=== PATIENT | female | born 1985 | race Hispanic/Latino ===

== ENCOUNTER 2020-09-24 06:44 | Emergency (ER) | payer BC, SELFPAY ==
--- OUTSIDE RECORDS SUMMARY | 2020-09-24 06:46 | XMS REPORT | Continuity of Care Document ---
:1985 Author Organization [facility] t Address [address] [place] [address] Care Team Providers Name Role Phone Alexandro TORRES Attending Clinician Problems This patient has no known problems. Allergies, Adverse Reactions, Alerts This patient has no known allergies or adverse reactions. Medications This patient has no known medications. Procedures This patient has no known procedures. Encounters Start End Encounter Admission Attending Care Care Encounter Source Date/Time Date/Time Type Type Clinicians Facility Department ID 2018-10-01 2018-10-01 Emergency Alexandro [facility] [id number] 05:30:56 06:20:00 Navarro Kwok [id number] [place] [id number] [place] [id number] Results This patient has no known results.
[2020-09-24 07:23] LABS: Urine Blood Negative (Negative); Urine Glucose Negative (Negative); Urine Protein Negative (Negative); Urine Specific Gravity 1.015 (1.005-1.030); Urine pH 8.5 (5.0-7.0)
[2020-09-24] MEDS ORDERED: ONDANSETRON 4 MG/2 ML VIAL ONE (07:36)
[2020-09-24] MEDS ORDERED: MORPHINE 4 MG/ML SYR ONE (07:36)
[2020-09-24] MEDS ORDERED: NA CHLORIDE 0.9% 1,000 ML ONE (07:37)
[2020-09-24 07:43] LABS: Absolute Lymphocytes (CBC) 0.5 K/uL (0.7-4.9); Basophils % 0.3 % (0-1.3); Hematocrit 34.6 % (36.0-45.0); Lymphocytes % 4.1 % (15.3-44.8); MPV 7.2 fL (7.6-11.3); RBC Red Blood Cell Count 3.86 M/uL (3.86-4.86)
[2020-09-24 07:56] LABS: ALT/SGPT 33 U/L (12-78); AST/SGOT 24 U/L (15-37); Alkaline Phosphatase 89 U/L (45-117); BUN Blood Urea Nitrogen 10 mg/dL (7-18); Bicarbonate 28 mmol/L (21-32); Bilirubin Direct 0.1 mg/dL (0-0.2); Bilirubin Total 0.4 mg/dL (0.2-1.0); Glucose Level 126 mg/dL (74-106); Lipase 85 U/L (73-393); Potassium 3.7 mmol/L (3.5-5.1); Protein, Total 7.8 g/dL (6.4-8.2); Sodium Level 138 mmol/L (136-145)
[2020-09-24 07:57] LABS: Urine Amorphous Sediment 3+ /HPF (NONE SEEN); Urine Bacteria <20 /HPF (<20); Urine RBC <5 /HPF (NONE SEEN)
[2020-09-24 08:27] LABS: Urine Specific Gravity/Preg 1.015 (1.005-1.030)
--- NOTE | 2020-09-24 08:43 | RAD REPORT ---
EXAM DESCRIPTION: CTAbdomen Pelvis W Contrast - 09/24/2020 8:16 am CLINICAL HISTORY: Abdominal pain. ABD PAIN COMPARISON: No comparisons TECHNIQUE: Biphasic CT imaging of the abdomen and pelvis was performed with 100 ml non-ionic IV cont rast. All CT scans are performed using dose optimization technique as appropriate and may include automated exposure control or mA/KV adjustment according to patient size. FINDINGS: The lung bases are clear. The liver, spleen, pancreas, adrenal glands and kidneys are within normal limits. No bowel obstruction, free air, free fluid or abscess. The appendix is normal. No evidence of signi ficant lymphadenopathy. No suspicious bony findings. IMPRESSION: No acute intra-abdominal or pelvic finding.
[2020-09-24 08:56] LABS: Blood Morphology Comment NOT SEEN (NOT SEEN); Platelet Estimate ADEQ; White Blood Cell Scan OK (OK)
--- NOTE | 2020-09-24 09:02 | EDPHYS ---
Physician Documentation [facility] Name: Coby Wyatt Age: 34 yrs Sex: Female : 1985 Arrival Date: 09/24/2020 Time: 06:46 Bed 7 Private MD: ED Physician Saw Owen HPI: 09/24 07:12 This 34 yrs old Female presents to ER via Wheelchair with complaints of Chest pm1 Pain, Abdominal Pain. 07:12 The patient presents with abdominal pain suprapubic area and epigastric area. pm1 07:12 Onset: The symptoms/episode began/occurred 2 day(s) ago. Associated signs and symptoms: pm1 Pertinent positives: chest pain, Pertinent negatives: nausea, vomiting, and diarrhea, constipation, dysuria, fever, shortness of breath. The symptoms are described as crampy. Modifying factors: The symptoms are alleviated by nothing, the symptoms are aggravated by nothing. Severity of pain: in the emergency department the pain is actually worse. The patient has experienced similar episodes in the past, multiple times, today's symptoms are similar, to previous ovarian cysts. Patient reports feeling this pain every 3 months but now it is occurring monthly. The patient has not recently seen a physician. Historical: - Allergies: 07:01 No Known Allergies; jb4 - Home Meds: 07:01 None [Active]; jb4 - PMHx: 07:01 None; jb4 - PSHx: 07:01 None; jb4 - Immunization history:: Adult Immunizations up to date. - Social history:: Smoking status: Patient denies any tobacco usage or history of. Patient/guardian denies using alcohol, street drugs. ROS: 07:12 Constitutional: Negative for fever, chills, and weight loss. pm1 07:12 Respiratory: Negative for shortness of breath, cough, wheezing, and pleuritic chest pain. 07:12 Back: Negative for injury and pain, : Negative for injury, bleeding, discharge, and swelling, MS/Extremity: Negative for injury and deformity, Skin: Negative for injury, rash, and discoloration, Neuro: Negative for headache, weakness, numbness, tingling, and seizure. 07:12 Cardiovascular: Positive for chest pain, Negative for edema. 07:12 Abdomen/GI: Positive for abdominal pain, of the epigastric area and suprapubic area, Negative for nausea, vomiting, and diarrhea, constipation. 07:12 All other systems are negative. Exam: 07:12 Constitutional: This is a well developed, well nourished patient who is awake, alert, pm1 and in no acute distress. Head/Face: Normocephalic, atraumatic. 07:12 Back: No spinal tenderness. No costovertebral tenderness. Full range of motion. Skin: Warm, dry with normal turgor. Normal color with no rashes, no lesions, and no evidence of cellulitis. MS/ Extremity: Pulses equal, no cyanosis. Neurovascular intact. Full, normal range of motion. 07:12 Eyes: Exam is negative for acute changes, Extraocular movements: no acute changes, Conjunctiva: no acute changes, no injection, Sclera: no acute changes, icterus, is not appreciated. 07:12 ENT: Mouth: Lips: normal, Oral mucosa: normal, pink and intact, moist. 07:12 Cardiovascular: Rate: normal, Rhythm: regular, Pulses: no pulse deficits are appreciated, Heart sounds: normal, Edema: is not appreciated. 07:12 Respiratory: Exam negative for acute changes, respiratory distress, shortness of breath, Breath sounds: are clear throughout. 07:12 Abdomen/GI: Inspection: abdomen appears normal, Palpation: soft, in all quadrants, mild abdominal tenderness, in the suprapubic area. 07:12 Neuro: Exam negative for acute changes, Orientation: is normal, Mentation: is normal, Motor: is normal, moves all fours. Vital Signs: 06:57 BP 138 / 98; Pulse 115; Resp 18; Temp 98.3(O); Pulse Ox 95% on R/A; Weight 63.5 kg; oe Height 5 ft. 2 in. (157.48 cm); 09:00 BP 126 / 90; Pulse 98; Resp 15; Pulse Ox 96% ; jl7 06:57 Body Mass Index 25.61 (63.50 kg, 157.48 cm) oe MDM: 06:54 Patient medically screened. subhash 09:00 Data reviewed: vital signs. Data interpreted: Pulse oximetry: on room air is 95 %. pm1 Interpretation: normal. Counseling: I had a detailed discussion with the patient and/or guardian regarding: the historical points, exam findings, and any diagnostic results supporting the discharge/admit diagnosis, lab results, radiology results, the need for outpatient follow up, a family practitioner, an OB/Gyne specialist, to return to the emergency department if symptoms worsen or persist or if there are any questions or concerns that arise at home. 09:10 ED course: TOBACCO WEIGHER aware reviewed ; 270, 432, 130. Patient with acute presentation of pain. pm1 has not received pain medications since June 2020. Will give 3 days worth of tramadol. 09/24 07:08 Order name: Basic Metabolic Panel; Complete Time: 08:29 pm1 09/24 07:08 Order name: CBC with Diff; Complete Time: 09:00 pm1 09/24 07:08 Order name: Hepatic Function; Complete Time: 08:29 pm1 09/24 07:08 Order name: Lipase; Complete Time: 08:29 pm1 09/24 07:08 Order name: Urine Microscopic Only; Complete Time: 08:29 pm1 09/24 07:20 Order name: Troponin (emerg Dept Use Only); Complete Time: 08:29 pm1 09/24 07:08 Order name: CT Abd/Pelvis - IV Contrast Only; Complete Time: 08:51 pm1 09/24 07:09 Order name: EKG; Complete Time: 07:10 pm1 09/24 07:23 Order name: Urine Dipstick-Ancillary; Complete Time: 07:34 EDMS 09/24 07:25 Order name: Urine --Ancillary (enter results); Complete Time: 08:29 mt 09/24 07:47 Order name: CBC Smear Scan; Complete Time: 09:00 EDMS 09/24 07:08 Order name: IV Saline Lock; Complete Time: 07:28 pm1 09/24 07:08 Order name: Labs collected and sent; Complete Time: 07:28 pm09/24 07:08 Order name: Urine Dipstick-Ancillary (obtain specimen); Complete Time: 07:28 pm1 09/24 07:08 Order name: Urine Test (obtain specimen); Complete Time: 07:28 pm09/24 07:09 Order name: EKG - Nurse/Tech; Complete Time: 07:28 pm1 Administered Medications: 07:20 Drug: NS 0.9% 1000 ml Route: IV; Rate: 1000 ml; Site: left antecubital; jl7 09:00 Follow up: Response: No adverse reaction; IV Status: Completed infusion; IV Intake: jl7 800ml 07:20 Drug: Zofran (Ondansetron) 4 mg Route: IVP; Site: left antecubital; jl7 08:26 Follow up: Response: No adverse reaction jl7 07:22 Drug: morphine 4 mg Route: IVP; Site: left antecubital; jl7 07:45 Follow up: Response: No adverse reaction; Pain is decreased jl7 Disposition: 09/25 07:10 Co-signature as Attending Physician, Saw Owen MD I agree with the assessment and subhash plan of care. Disposition Summary: 09/24/20 09:01 Discharge Ordered Location: Home pm1 Problem: new pm1 Symptoms: have improved pm1 Condition: Stable pm1 Diagnosis - Abdominal pain, unspecified pm1 - Chest pain, unspecified pm1 Followup: pm1 - With: Emergency Department - When: As needed - Reason: Worsening of condition Followup: pm1 - With: Private Physician - When: 2 - 3 days - Reason: Recheck today's complaints, Continuance of care, Re-evaluation by your physician Discharge Instructions: - Discharge Summary Sheet pm1 - Abdominal Pain, Adult pm1 - Nonspecific Chest Pain, Adult pm1 Forms: - Medication Reconciliation Form pm1 - Work release form pm1 - Thank You Letter pm1 - Antibiotic Education pm1 - Prescription Opioid Use pm1 Prescriptions: - Tramadol 50 mg Oral Tablet - take 1 tablet by ORAL route every 8 hours as needed; 12 tablet; Refills: 0, pm1 Product Selection Permitted Signatures: Dispatcher [employer] Saw Vasquez MD MD cha Marinas, Patrick, NP [employer] pm1 Keshawn Peace, RN RN jb4 Lee Lebron RN RN jl7 Corrections: (The following items were deleted from the chart) 09/24 07:01 07:01 PMHx: Unable to Obtain; chaim jb4
--- NOTE | 2020-09-24 09:02 | ER ---
Nurse's Notes [facility] Name: Coby Wyatt Age: 34 yrs Sex: Female : 1985 Arrival Date: 09/24/2020 Time: 06:46 Bed 7 Private MD: Diagnosis: Abdominal pain, unspecified;Chest pain, unspecified Presentation: 09/24 06:59 Chief complaint: Patient states: I Started having abdominal pain on Wednesday, it has jb4 progressively worsened and now radiates to my chest. Coronavirus screen: Client denies travel out of the [place] in the last 14 days. Ebola Screen: No symptoms or risks identified at this time. Initial Sepsis Screen: Does the patient meet any 2 criteria? HR > 90 bpm. Yes Does the patient have a suspected source of infection? Yes: Acute abdominal pain. Risk Assessment: Do you want to hurt yourself or someone else? Patient reports no desire to harm self or others. Onset of symptoms was September 22, 2020. Transition of care: patient was not received from another setting of care. 06:59 Method Of Arrival: Wheelchair jb4 06:59 Acuity: DAVID 3 jb4 Historical: - Allergies: 07:01 No Known Allergies; jb4 - Home Meds: 07:01 None [Active]; jb4 - PMHx: 07:01 None; jb4 - PSHx: 07:01 None; jb4 - Immunization history:: Adult Immunizations up to date. - Social history:: Smoking status: Patient denies any tobacco usage or history of. Patient/guardian denies using alcohol, street drugs. Screenin:28 Abuse screen: Denies threats or abuse. Denies injuries from another. Nutritional hb screening: No deficits noted. Tuberculosis screening: No symptoms or risk factors identified. Fall Risk None identified. Assessment: 07:34 General: Appears in no apparent distress. uncomfortable, Behavior is cooperative, jl7 appropriate for age, anxious, crying. Pain: Complains of pain in right lower quadrant and left lower quadrant Pain radiates to chest Pain currently is 9 out of 10 on a pain scale. Pain began gradually, Is continuous. Neuro: Level of Consciousness is awake, alert, obeys commands, Oriented to person, place, time, situation. Cardiovascular: Patient's skin is warm and dry. Respiratory: Airway is patent Respiratory effort is even, unlabored, Respiratory pattern is regular, symmetrical. GI: Abdomen is non-distended. : Reports pain in bilateral lower quadrant(s). Derm: Skin is pink, warm \T\ dry. 08:40 Reassessment: Patient appears in no apparent distress at this time. Patient and/or hb family updated on plan of care and expected duration. Pain level reassessed. Patient is alert, oriented x 3, equal unlabored respirations, skin warm/dry/pink. Vital Signs: 06:57 BP 138 / 98; Pulse 115; Resp 18; Temp 98.3(O); Pulse Ox 95% on R/A; Weight 63.5 kg; oe Height 5 ft. 2 in. (157.48 cm); 09:00 BP 126 / 90; Pulse 98; Resp 15; Pulse Ox 96% ; jl7 06:57 Body Mass Index 25.61 (63.50 kg, 157.48 cm) oe ED Course: 06:46 Patient arrived in ED. es 06:50 Taqueria Renteria NP is PHCP. pm1 06:50 Saw Owen MD is Attending Physician. pm1 07:01 Triage completed. jb4 07:01 Arm band placed on right wrist. jb4 07:11 Lee Lebron RN is Primary Nurse. jl7 07:20 Initial lab(s) drawn, by ak, sent to lab. Urine collected: clean catch specimen, jl7 cloudy, EKG done, by ED staff, reviewed by Taqueria Renteria NP. Inserted saline lock: 20 gauge in left antecubital area, using aseptic technique. Blood collected. 07:28 Patient has correct armband on for positive identification. Placed in gown. Bed in low hb position. Call light in reach. Side rails up X 1. telemetry monitor on. Pulse ox on. NIBP on. 07:28 Patient maintains SpO2 saturation greater than 95% on room air. hb 08:16 CT Abd/Pelvis - IV Contrast Only In Process Unspecified. EDMS 09:29 No provider procedures requiring assistance completed. IV discontinued, intact, jl7 bleeding controlled, No redness/swelling at site. Pressure dressing applied. Administered Medications: 07:20 Drug: NS 0.9% 1000 ml Route: IV; Rate: 1000 ml; Site: left antecubital; jl7 09:00 Follow up: Response: No adverse reaction; IV Status: Completed infusion; IV Intake: jl7 800ml 07:20 Drug: Zofran (Ondansetron) 4 mg Route: IVP; Site: left antecubital; jl7 08:26 Follow up: Response: No adverse reaction jl7 07:22 Drug: morphine 4 mg Route: IVP; Site: left antecubital; jl7 07:45 Follow up: Response: No adverse reaction; Pain is decreased jl7 Intake: 09:00 IV: 800ml; Total: 800ml. jl7 Outcome: 09:01 Discharge ordered by . pm1 09:29 Discharged to home ambulatory. jl7 09:29 Condition: stable 09:29 Discharge instructions given to patient, Instructed on discharge instructions, follow up and referral plans. medication usage, Demonstrated understanding of instructions, follow-up care, medications, Prescriptions given X 1. 09:29 Patient left the ED. jl7 Signatures: Dispatcher [employer] EDTerri Herrera Patrick, [employer] pm1 Nohelia Davila, Keshawn Chase RN, RN RN jb4 Nj Anna Jahala RN RN jl7 Corrections: (The following items were deleted from the chart) 07: 07:01 PMHx: Unable to Obtain; chaim jb4
[2020-09-24 09:36] VITALS: TEMP 98.3
[2020-09-24 09:38] VITALS: BP 126/90; O2SAT 96
--- NOTE | 2020-09-25 10:45 | EKG ---
Test Date: 2020-09-24 Test Time: 07:31:28 Baker Second: [place] MEASUREMENT RESULTS: Intervals: Rate: 105 IA: 144 QRSD: 92 QT: 360 QTc: 475 [place]: P: 58 IA: 144 QRS: 5 T: 38 INTERPRETIVE STATEMENTS: Sinus tachycardia Low voltage QRS Cannot rule out Anterior infarct, age undetermined Abnormal ECG No previous ECG available for comparison Electronically Signed On 09-25-20 10:42:03 CDT by Ang Marquez
== END 2020-09-24 09:29 | disposition home or self-care (01) ==
LOC: ER 06:44
DX: R07.9 Chest pain, unspecified (principal)
CPT/HCPCS: 36415; 74177; 80048; 80076; 81003; 81015; 81025; 83690; 84484; 85025; 93005; 96361; 96374; 96375; 99285; J2405; J7030; Q9967